=== PATIENT | male | born 1980 | race Caucasian/White ===

== ENCOUNTER → 2023-09-24 | Outpatient (CLI) | payer BC, SELFPAY ==
--- NOTE | 2023-09-24 09:01 | RAD_ITS ---
STUDY: X-RAY - LEFT KNEE REASON FOR EXAM: Male, 43 years old. Pain. TECHNIQUE: 4 view(s) of the knee. COMPARISON: None. FINDINGS: Normal visualized distal femur. Normal visualized proximal tibia and fibula. Normal proximal tibiofibular articulation. Superior and inferior patellar spurs. Normal medial femorotibial compartment. Normal lateral femorotibial compartment. Normal patellofemoral articulation. Normal soft tissues. RAD/Knee 4 or More Views IMPRESSION: Patellar spurs with no other abnormality. Electronically Signed: Jose L Dela Cruz MD at 13:57 EST ,
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
== END | disposition home or self-care (01) ==
LOC: MTRAD 08:57
PROVIDERS: PCP Family Medicine; Referring Provider Family Medicine; Visit Provider Family Medicine
DX: M25.562 Pain in left knee (principal)
CPT/HCPCS: 73564

== ENCOUNTER → 2023-11-04 | Outpatient (CLI) | payer BC, SELFPAY ==
[2023-11-04 17:30] LABS: Absolute Lymphocyte Count 1.42 X10^3/uL (0.83-4.51); Absolute Neutrophil Count 6.5 X10^3/uL (2.0-7.7); Basophil# 0.03 X10^3/uL; Basophil% 0.3 % (0-1); Eosinophil# 0.01 X10^3/uL; Eosinophils% 0.1 % (0-5); Hematocrit 43.5 % (40-54); Hemoglobin 13.7 g/dL (13.0-16.5); Lymphocyte # 1.42 X10^3/ul (0.83-4.51); Lymphocyte % 16.5 % (19-41); Mean Corp Hgb Conc 31.5 g/dL (32-36); Mean Corpuscular Hgb 26.6 pg (27.0-32.0); Mean Corpuscular Volume 84.3 fL (80-94); Mean Platelet Vol. 11.6 fl (6.2-12.0); Monocyte# 0.54 X10^3/uL; Monocyte% 6.3 % (0-10); NRBC Flagged by Analyzer 0 % (0-5); Neutrophil # 6.53 X10^3/uL (2.7-7.7); Neutrophil % 76.1 % (47-70); Platelet Count 198 K/mm3 (150-450); RBC Distribution Width CV 13.8 % (11.6-14.6); RBC Distribution Width SD 42.6 fl (35.1-43.9); Red Blood Count 5.16 M/mm3 (4.6-6.2); White Blood Count 8.6 K/mm3 (4.4-11.0)
[2023-11-04 17:51] LABS: Erythrocyte Sedimentation Rate 4 mm/hr (0-20)
[2023-11-04 18:03] LABS: ALB/GLOB Ratio 1.2 RATIO (0.9-2.4); AST(SGOT) 13 U/L (15-37); Alanine Aminotransfer ALT/SGPT 23 U/L (16-61); Alkaline Phosphatase 96 U/L (45-117); Anion Gap 2 (5-15); BUN 14 mg/dL (7-18); BUN/Creat Ratio 15.7 RATIO (10-20); Calcium,Total 8.9 mg/dL (8.5-10.1); Chloride 111 mmol/L (98-107); Creatinine, Serum 0.89 mg/dL (0.70-1.30); EST Glomerular Filtration Rate 99 mL/min (>60); Est Glom Filt Rate - Afr Amer 120 mL/min (>60); Globulin 3.3 g/dL (2.2-4.2); Glucose 94 mg/dL (74-106); Potassium 4.1 mmol/L (3.5-5.1); Protein, Total 7.3 g/dL (6.4-8.2); Sodium Level 138 mmol/L (136-145); Thyroid Stim Hormone (TSH) 3.18 uIU/mL (0.358-3.74)
--- OUTSIDE RECORDS SUMMARY | 2023-11-04 19:11 | XMS RPT_ITS | CCD ---
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 Role Phone Colby Garcia MD Unavailable [phone] Jhon Hair MD Primary Care Provider Jhon Hair MD Primary Care Provider GISSELL SAAB Referring Unavailable JHON HAIR Primary Care Unavailabl e JHON HAIR Primary Care Unavailabl e GISSELL SAAB Referring Unavailable JHON HAIR Primary Care Unavailabl e GISSELL SAAB Referring Unavailable JHON HAIR Primary Care Unavailabl e GISSELL SAAB Referring Unavailable KATIANA, GISSELL Referring Unavailable JHON HAIR Primary Care Unavailabl e GISSELL SAAB Referring Unavailable JHON HAIR Primary Care Unavailabl e JHON HAIR Primary Care Unavailabl e BENNETT PINEDA Referring Unavailable JHON HAIR Primary Care Unavailabl e SQUGISSELL JIMENEZ Referring Unavailable SQUBARBARA, GISSELL Referring Unavailable JHON HAIR Primary Care Unavailabl e GISSELL SAAB Referring Unavailable JHON HAIR Primary Care Unavailabl e GISSELL SAAB Referring Unavailable JHON HAIR Primary Care Unavailabl e GISSELL SAAB Referring Unavailable JHON HAIR Primary Care Unavailabl e SQUBARBARA, GISSELL Referring Unavailable JHON HAIR Primary Care Unavailabl e ARTHUR SABA Attending Unavailable JHON HAIR Primary Care Unavailabl e SQUGISSELL JIMENEZ Referring Unavailable JHON HAIR Primary Care Unavailabl e Allergies Allergy Classification Reported Allergen(s) Allergy Type Date of Onset Reaction(s) Facility (1 source) clarithromycin drug allergy 8 [facility] Work Phone: (1 source) LONG HAIR DOGS; Translations: [LONG HAIR DOGS] allergy to substance 8 [facility] Work Phone: (3 sources) Clarithromycin; Translations: [CLARITHROMYCIN] Drug Allergy 5 Unknown [facility] Medications Current Medications Medication Drug Class(es) [...] TABS 2 tablets twice daily DOCUSATE SODIUM [id number] Meg Marie 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 glycopyrrolate 1 mg oral tablet (1 source) Anticholinergic Start: 02-24-2018 ROBINUL 1 MG TABS 1 tablet three times daily GLYCOPYRROLATE [id number] Meg Marie 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 melatonin 10 mg oral tablet (3 sources) Start: 02-24-2018 MELATONIN 10 MG TABS 1 tablet at bedtime MELATONIN [id number] Meg Marie 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 Problems Active Problems Problem Classification Problem Date [...] Long-term current use of clozapine; Translations: [Other alf (current) drug therapy] Onset: 07-05-2021 07-05-2021 Episodic Other aftercare (2 sources) 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; Translations: [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] Onset: 07-05-2021 Episodic Other non-traumatic joint disorders (3 sources) Mass of hand; Translations: [Localized swelling, mass and lump, unspecified upper limb] Onset: 03-02-2018 03-02-2018 Episodic Unclassified (1 source) Problem Results Test Name Value Interpretation Reference Range Facil ity Vital Signs Date Time Vital Sign Value Performing Clinician Facility NEGATED: Highlighted [id number] 13:30-0400 BMI (Body Mass Index) 27.31 kg/m2 Heather O'Xu 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 [facility] Work Phone: NEGATED: Highlighted [id number] 13:30-0400 BP Diastolic 88 mm[Hg] Heather O'Xu 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 [facility] Work Phone: NEGATED: Highlighted [id number] 13:30-0400 BP Systolic 133 mm[Hg] Heather O'Xu 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 [facility] Work Phone: NEGATED: Highlighted [id number] 13:30-0400 Height 197.49 cm Heather O'Xu 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 [facility] Work Phone: NEGATED: Highlighted [id number] 13:30-0400 Height 197 cm Heather O'Xu 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 [facility] Work Phone: NEGATED: Highlighted [id number] 13:30-0400 Pulse (Heart Rate) 73 /min Heather O'Xu 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 [facility] Work Phone: NEGATED: Highlighted [id number] 13:30-0400 Weight 106.14 kg Heather Irene'Xu 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 [facility] Work Phone: NEGATED: Highlighted [id number] 13:30-0400 Weight 106 kg Heather Camargo SHORTY [facility] Work Phone: Encounters Encounter Date Encounter Type Care Provider Facility Start: 10-07-2023 End: 10-08-2023 ambulatory GISSELL SAAB Facility:[facility] Start: 09-16-2023 End: 09-17-2023 [facility] Start: 07-29-2023 End: 07-30-2023 [facility] Start: 07-02-2023 End: 07-03-2023 [facility] Start: 06-09-2023 End: 06-10-2023 ambulatory JHON HAIR Facility:[facility] Start: 04-29-2023 End: 04-30-2023 ambulatory JHON HAIR Facility:[facility] Start: 04-07-2023 End: 04-08-2023 ambulatory JHON HAIR Facility:[facility] Start: 04-03-2023 End: 04-04-2023 [facility] Start: 03-02-2023 End: 03-03-2023 ambulatory JHON HAIR Facility:[facility] Start: 02-05-2023 End: 02-06-2023 ambulatory JHON HAIR Facility:[facility] Start: 01-08-2023 End: 01-09-2023 [facility] Start: 12-09-2022 End: 12-10-2022 [facility]ulatory [facility] Start: 11-10-2022 End: 11-11-2022 [facility]ulatory [facility] Start: 11-04-2022 End: 11-05-2022 ambulatory ARTHUR SABA Facility:[facility] Start: 10-14-2022 End: 10-14-2022 [facility]ulatory [facility] Start: 07-15-2022 Telephone encounter Brett Hair MD Work Phone: Internal Medicine [facility] Procedures Date Procedure Procedure Detail Performing Clinician [...] Author Start: 04-22-2026 LIPID SCREEN LIPID SCREEN [facility] Start: 12-31-2022 Adult depression screening assessment DEPRESSION SCREENING [facility] Start: 05-29-2022 Influenza vaccination INFLUENZA (#1) [facility] Start: 10-02-2021 COVID-19 VACCINE (4 - Booster for Pfizer series) COVID-19 VACCINE (4 - Booster for Pfizer series) [facility] Start: 09-28-2021 DEPRESSION ASSESSMENT DEPRESSION ASSESSMENT [facility] Start: 03-02-2018 End: 03-02-2018 Appointment Appointment [facility] Work Phone: Start: 03-02-2018 End: 03-02-2018 X-ray exam of hand [facility] Work Phone: Start: 01-08-2000 Urine microalbumin profile DTAP,TDAP,TD (1 - Tdap) [facility] Start: 1981 HEPATITIS B (1 of 3 - 3-dose series) HEPATITIS B (1 of 3 - 3-dose series) [facility] Immunizations Immunization Date Immunization Notes Care Provider Fa wandy No information available. Heather Camargo LPN [facility] Work Phone: Payers Date Payer Category Payer Unknown [id number] 2019 Unknown [employer] PPO OOS [id number] 2019-Present [phone] [address] [place] [address] PPO [id number] 2019 Unknown [employer] PPO OOS [id number] 2019-Present [phone] [address] [place] [address] PPO [id number] 2019 Unknown [id number] Social History Date Type Detail Facility Start: 03-02-2018 End: 03-02-2018 Assertion Unknown if ever smoked [facility] Work Phone: Start: 12-23-2014 End: 09-25-2017 Tobacco smoking status NHIS Never smoked tobacco [facility] Start: 12-23-2014 End: 09-25-2017 Tobacco use and exposure Smokeless tobacco non-user [facility] Start: 11-06-2020 Alcohol intake 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 Author [...] his marriage. Notably, when they were in [facility], it appears as though his family had [...] meds: Clozapine 100mg tab 6.5 tab QHS [place] carbonate 600mg BID Melatonin 5mg QHS Robinul [...] other weekend Prior Rx trials: Depakote (hepatitis 2009), Seroquel, Zyprexa, trazodone, geodon, cogentin, risperdal (side effects), abilify, haldol, Invega sustenna (not helpful) DATA REVIEWED: PHQ-9: na, HIMANSHU-7: na, and Electronic medical record PDMP reviewed: fine Pertinent labs: 10/25 TSH 2.1, due for (more content not included)... [facility] Yun Note 07-15-2022 Telephone Encounter - Genoveva Lang RN - 07/15/2022 3:45 PM EDT Note Date & Type Note Facility 07-15-2022 Miscellaneous Notes Formattin g of this note might be different from the original. Caty from [facility] in [place] called and reports she needs Pts CBC faxed to [phone] in order to fill Pts prescription. Faxed labs to [facility]. documented in this encounter [facility] History of Past illness Narrative 11-04-2007 Note Date & Type Note Facility documented as of this encounter (statuses as of 04/18/2022) [facility] History of Past illness Narrative 11-04-2007 Note Date & Type Note Facility documented as of this encounter (statuses as of 07/15/2022) [facility] Instructions Instruction Description Start Date Patient advised to follow-up with Primary Care Physician for BMI management. 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 Advance Directive(s) Advance Directive(s) 04/07/2020 [...] section and content) DATE CREATED AUTHOR AUTHOR'S BABAK DENT 10/08/2023 [facility] Comments (unrecognize d section and content) In the event this informatio n is protected by the Federal Confidentiality of Alcohol and Drug Abuse Patient Records regulations: The Federal rules restrict any use of the information to criminally investigate or prosecute any alcohol or drug abuse patient.[facility] the event this information is protected by the Federal Confidentiality of Alcohol and Drug Abuse Patient Records regulations: The Federal rules restrict any use of the information to criminally investigate or prosecute any alcohol or drug abuse patient.[facility] Reason for Visit (unrecogniz ed section and content) Reason Comments Results Care Teams (unrecognized sec tion and content) 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 [facility] [employer] [facility]. provides no warranty or guarantee of the accuracy or completeness of information in this document.
== END | disposition home or self-care (01) ==
LOC: MFPLAB 15:41
PROVIDERS: PCP Family Medicine; Visit Provider Family Medicine
DX: R61 Generalized hyperhidrosis (principal)
CPT/HCPCS: 36415; 80053; 84403; 84443; 85025; 85652

== ENCOUNTER → 2024-01-25 | Outpatient (CLI) | payer BC, SELFPAY ==
--- NOTE | 2024-01-25 16:59 | RAD_ITS ---
INDICATION: pain, swelling. 1st DIP EXAMINATION/TECHNIQUE: X-RAY - RIGHT FOOT XR Toes Min 2 Views 3 VIEWS COMPARISON: None FINDINGS: SOFT TISSUES: Mild distal first digit edema. No subcutaneous emphysema. No radiopaque foreign body. BONES/JOINTS: No acute fracture. Normal alignment. Joint space narrowing and mild osteophyte formation at the first metatarsophalangeal joint and interphalangeal joint. No erosions or periostitis. Mild flattening of the second metatarsal head.. No sclerotic or destructive changes observed. 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 No acute osseous finding. Mild flattening of the distal second metatarsal head which can be seen with Freiberg''s infraction.. Electronically Signed: Alex Oconnor MD at 17:28 EDT ,
== END | disposition home or self-care (01) ==
PROVIDERS: PCP Family Medicine; Referring Provider Family Medicine; Visit Provider Family Medicine
DX: M79.671 Pain in right foot (principal)
CPT/HCPCS: 73660

== ENCOUNTER 2024-05-16 05:06 | Emergency (ER) | payer BC, SELFPAY ==
[2024-05-16 05:07] VITALS: BP 150/88; PULSE 104; RESP 16; TEMP 36.6; O2SAT 98; BMI 34.4
--- NOTE | 2024-05-16 05:38 | EDS_ITS ---
HPI History of Present Illness Chief Complaint: Wound Informant: patient Narrative Narrative: Her 44-year-old male presenting with 2-3 days gradual onset pain and swelling at the dorsum of the left hand. [id number]. Denies any injury that he knows of. It is hard to move because it hurts so bad. He is having a little bit of itching. He is concerned could be an insect or spider bite. He did not see anything bite him. It did not start with a pustule or vesicle, more like just a swollen sore area and the swelling dramatically increased all around this throughout the hand. Now it is starting to get swollen into the wrist a little but the majority of the pain is in the dorsum of the hand. No systemic symptoms or fevers. No red streaking. He is not a diabetic. [facility] Medical History Bipolar disorder Home Medications ?Medication ?Instructions ?Recorded ?Last Taken ?Type prednisone 20 mg tablet 40 mg (2 x 20 mg) PO DAILY #10 12/15/22 Unknown Rx TABLETS clozapine 100 mg tablet 600 mg PO QHS 05/16/24 Unknown History doxycycline hyclate 100 mg capsule 100 mg PO BID #20 caps 05/16/24 Unknown Rx glycopyrrolate 1 mg tablet 1 mg PO TID 05/16/24 Unknown History lithium carbonate 600 mg capsule 600 mg PO BID 05/16/24 Unknown History Allergy/AdvReac Type Severity Reaction Status Date / Time clarithromycin (From Biaxin) Allergy PT UNSURE Verified 05/16/24 05:12 OF REACTION Social History Smoking Status: Never smoker ROS ROS ED Constitutional Constitutional ED: Denies chills or fever(s) Musculoskeletal Musculoskeletal: Reports extremity pain; Denies neck pain Integumentary Reports as per HPI and abscess; Denies Abrasions or wounds Neurologic Neurologic: Denies paresthesias or weakness EXAM Physical Exam Const Vital Signs: 05/16/24 05:07 Temperature 98 F Temperature Source Oral Pulse Rate 104 H Respiratory Rate 16 Blood Pressure 150/88 H Blood Pressure Mean 108 Pulse Ox 98 Oxygen Delivery Method Room Air Positive well nourished and well developed General Appearance ED: well developed and NAD Neck full ROM and supple Back/Spine normal ROM and normal to inspection Extremity Extremity Narrative: Swelling throughout the dorsum of the entire left hand and less prominently into the left wrist. He can move the wrist but limited due to pain in the hands, same with the fingers. All tendon function is intact. There is an indurated subcutaneous nodular area that is approximately 3 cm in diameter at the base of the left hand that seems to be the most prominently painful, tender area. There is minimal erythema over this, there is no erythema anywhere else or lymphangitis. No epitrochlear lymphadenopathy. The rest exam is normal. Neuro oriented x3, no focal motor deficits and no sensory deficits noted Sensorium / Orientation: alert Psych mental status grossly normal and thought process normal Skin Skin Narrative: See above left hand no other rashes or lesions. Rashes: no rashes MDM MDM MDM Narrative Medical decision making narrative: This has the appearance of an early abscess with surrounding reactive edema. It does not appear to be a [id number]-iglch from an insect sting for an allergic reaction, and there is no evidence of necrotic tissue. I initially took the ED ultrasound to his hand, there did appear to be the possibility of a collection between the 2 extensor tendons. Therefore we attempted drainage via needle aspiration, but there was nothing to aspirate there see the procedure note. Patient is stating that he does not think he injured it but he does not know so I obtained an x-ray. 3 views of the left hand my interpretation is negative for acute bony abnormality or fracture. Soft tissue swelling is noted dorsally. Clinically I do not think there is any extensor tendon involvement or tenosynovitis. Extending his fingers increases his pain in the area of the hand dorsum, but it is not limited to just 1 tendon. I think placing him on an antibiotic to cover MRSA is most reasonable here, given him a cock up wrist splint for comfort, and advising that he follow-up with his doctor if it does not get better. He is comfortable with that plan. The current hospital antibiogram shows that for MRSA, doxycycline has the best coverage of oral outpatient medications (not including linezolid). Procedures Other Procedures Procedure(s): Abscess needle aspiration left hand: Sterile prep with isopropanol with local 1 cc plain 1% lidocaine anesthesia subcutaneously. Then sterile prep with Betadine and attempted to aspirate in several different directions into indurated subcutaneous nodular area dorsal approach between the middle and ring extensor tendons with a 21-gauge sterile needle. No purulent material was able to be aspirated. Tolerated well no complications, minimal venous oozing, dressed with a bandage. Discharge Plan Triage Chief Complaint: Wound ED Provider: Kaveh Graham Dx/Rx/DC Orders Clinical Impression: Cutaneous abscess of left hand Instructions: ED Abscess Antibiotic Treatment Only Prescriptions: New doxycycline hyclate 100 mg capsule 100 mg PO BID Qty: 20 0RF Continued prednisone 20 mg tablet 40 mg PO DAILY Qty: 10 0RF glycopyrrolate 1 mg tablet 1 mg PO TID clozapine 100 mg tablet 600 mg PO QHS lithium carbonate 600 mg capsule 600 mg PO BID Primary Care Provider: Aguilar Fowler Referrals: Aguilar Fowler MD [Primary Care Provider] - 3-5 Days if not improving Print Language: Greek Disposition Disposition: Home, Self Care
--- NOTE | 2024-05-16 05:59 | RAD_ITS ---
INDICATION: pain EXAMINATION/TECHNIQUE: X-RAY - LEFT XR Hand Min 3 Views 3 VIEWS COMPARISON: None FINDINGS: SOFT TISSUES Diffuse dorsal hand edema. No radiopaque foreign body. BONES/JOINTS: No acute fracture or subluxation.. Normal alignment. Preservation of the joint space.. No sclerotic or destructive changes observed. RAD/Hand Min 3 Views IMPRESSION: Prominent dorsal hand edema compatible with infection or trauma.. No acute osseous finding. Electronically Signed: Alex Oconnor MD at 6:33 EDT ,
[2024-05-16] MEDS: Lidocaine 1% (20 ml mdv) 20 ML Vial INFILT (06:38)
[2024-05-16] MEDS: Doxycycline 100 MG CAPSULE PO (06:38)
[2024-05-16 06:52] VITALS: BP 144/80; PULSE 99; RESP 18; TEMP 36.6; O2SAT 98
== END 2024-05-16 06:53 | disposition home or self-care (01) ==
PROVIDERS: Emergency Provider Emergency Medicine; PCP Family Medicine; Visit Provider Emergency Medicine
DX: L02.512 Cutaneous abscess of left hand (principal); F31.9 Bipolar disorder, unspecified; M79.89 Other specified soft tissue disorders; Z79.899 Other long term (current) drug therapy
CPT/HCPCS: 10160; 73130; 99282